=== PATIENT | male | born 1985 | race Caucasian/White ===

== ENCOUNTER 2017-12-14 09:02 | Outpatient (CLI) ==
[2013-04-17 08:00] VITALS: BMI 52.7
--- NOTE | 2017-12-14 10:22 | US ---
EXAM: Limited abdominal ultrasound. History: Abnormal liver enzymes. Technique: Multiple sonographic images through the abdomen were obtained. Color duplex Doppler was used to interrogate vascular flow. Findings: The liver is mildly enlarged and diffusely echogenic. No focal liver lesions identified sonographical ly. Visualized pancreas demonstrates no gross abnormality. There is antegrade flow within the main portal vein. No abdominal ascites. Common bile duct measures 0.4 cm in caliber. Limited visualizat ion of the right kidney demonstrates no evidence for hydronephrosis. Cholelithiasis with gallstone m easuring 2.2 cm. No gallbladder wall thickening. Impression: 1. Cholelithiasis. 2. Mildly enlarged fatty liver
== END 2017-12-14 09:03 | disposition home or self-care (01) ==
LOC: RAD 09:02
PROVIDERS: ATTEND Emergency Medicine
DX: R74.8 Abnormal levels of other serum enzymes (principal)

== ENCOUNTER 2018-07-30 09:29 | Outpatient (CLI) ==
[2013-04-17 08:00] VITALS: BMI 52.7
== END 2018-07-30 09:30 | disposition home or self-care (01) ==
LOC: RHC-LAB 09:29
PROVIDERS: ATTEND Nurse Practitioner Family
DX: E78.5 Hyperlipidemia, unspecified (principal); I10 Essential (primary) hypertension; E78.1 Pure hyperglyceridemia; E66.01 Morbid (severe) obesity due to excess calories
CPT/HCPCS: 36415; 80053; 80061; 84443; 85025